=== PATIENT | male | born 1995 | race African-American/Black ===

== ENCOUNTER 2025-05-19 18:01 | Emergency (ER) | payer OTHER | END 2025-05-19 20:23 | disposition home or self-care (01) | LOC: JD.ED 18:01 | DX: S92.422A Displaced fracture of distal phalanx of left great toe, initial encounter for closed fracture (principal); W20.8XXA Other cause of strike by thrown, projected or falling object, initial encounter | CPT/HCPCS: 73630-26-LT; 73630-LT; 99283 ==